=== PATIENT | male | born 1990 | race Caucasian/White ===

== ENCOUNTER 2017-09-25 11:00 | Emergency (ER) | payer SELFPAY ==
[~2017-09-25] VITALS: Ht 180.3 cm; Wt 82.3 kg
[2017-09-25 11:07] VITALS: BP 125/62; PULSE 83; TEMP 98.7
== END 2017-09-25 12:02 | disposition home or self-care (01) ==
LOC: COL.ER 11:00
DX: S99.911A Unspecified injury of right ankle, initial encounter (principal); X50.0XXA Overexertion from strenuous movement or load, initial encounter; Y93.66 Activity, soccer